=== PATIENT | male | born 1950 | race Caucasian/White ===

== ENCOUNTER 2017-06-30 10:08 | Emergency (ER) | payer MEDICARE, OTHER ==
[~2017-06-30] VITALS: Ht 188 cm; Wt 97.5 kg
[~2017-06-30 10:08] MED LIST: FLEXERIL PO; MOBIC7.5 M1 PO; TRAMADOL 50 MG50 MG PO
[2017-06-30 11:30] VITALS: BP 144/72
== END 2017-06-30 11:41 | disposition home or self-care (01) ==
LOC: M.ERS 10:08
DX: H61.21 Impacted cerumen, right ear (principal); F10.99 Alcohol use, unspecified with unspecified alcohol-induced disorder; Z88.5 Allergy status to narcotic agent